=== PATIENT | female | born 1955 | race Caucasian/White ===

== ENCOUNTER 2017-05-03 11:35 | Inpatient (IN) | payer SELFPAY ==
[~2017-05-03] VITALS: Ht 160 cm; Wt 59.9 kg
[2017-05-03 12:22] LABS: BASOPHILS % (AUTO) 0.3 % (0-1); EOSINOPHILS # (AUTO) 0.1 X10'3 (0-0.9); EOSINOPHILS % (AUTO) 1.1 % (0-6); HEMATOCRIT 40.7 % (35.0-45.0); HEMOGLOBIN 14.1 g/dl (12.0-16.0); LYMPHOCYTES # (AUTO) 2.3 X10'3 (1.1-4.8); LYMPHOCYTES % (AUTO) 23.1 % (21-51); MEAN CORPUSCULAR HGB CONC 34.6 % (33.0-36.5); MEAN CORPUSCULAR VOLUME 101.2 FL (78-98); MEAN PLATELET VOLUME 8.4 FL (7.4-10.4); MONOCYTES # (AUTO) 0.9 X10'3 (0-0.9); MONOCYTES % (AUTO) 9.1 % (2-12); NEUTROPHILS # (AUTO) 6.7 X10'3 (1.8-7.7); NEUTROPHILS % (AUTO) 66.4 % (42-75); PLATELET COUNT 276 X10'3 (140-440); RED BLOOD COUNT 4.02 X10'6 (4.20-5.60); RED CELL DISTRIBUTION WIDTH 17.7 % (11.5-14.5); WHITE BLOOD COUNT 10.1 X10'3 (4.5-11.0)
[2017-05-03 12:45] LABS: ALANINE AMINOTRANSFERASE 73 U/L (12-78); ALBUMIN 3.7 G/DL (3.4-5.0); ALKALINE PHOSPHATASE 88 IU/L (46-116); ANION GAP 14 (8-16); ASPARTATE AMINO TRANSFERASE 189 U/L (10-37); BILIRUBIN,TOTAL 2.2 MG/DL (0.1-1.0); BLOOD UREA NITROGEN 9 MG/DL (7-18); BUN/CREATININE RATIO 12.7 (6.6-38.0); CALCIUM 9.1 MG/DL (8.5-10.1); CHLORIDE 99 MMOL/L (99-107); CREATININE 0.71 MG/DL (0.40-0.90); GLUCOSE 134 MG/DL (70-104); SODIUM 140 MMOL/L (135-145); TOTAL CARBON DIOXIDE 27.3 MMOL/L (24-32); TOTAL PROTEIN 7.3 G/DL (6.4-8.2); TROPONIN I 0.04 NG/ML (0.0-0.05); eGFR 83 ML/MIN
[2017-05-03 12:48] LABS: POTASSIUM 1.3 MMOL/L (3.5-5.1)
[2017-05-03 12:55] LABS: INR 1.1 INR; PARTIAL THROMBOPLASTIN TIME 23 SECONDS (22-32); PROTHROMBIN TIME 10.9 SECONDS (9.0-12.0)
[2017-05-03] MEDS ORDERED: magnesium 2GM in 50ml NS 50 ML IV ONE ×2 (12:55→15:35)
[2017-05-03] MEDS ORDERED: potassium Cl 20 mEq SR tablet PO ONE (12:55)
[2017-05-03] MEDS ORDERED: thiamine 100mg/ml 2ml inj. IV ONE (12:55)
[2017-05-03] MEDS ORDERED: potassium 10mEq/100ml NS w/LIDOcaine (10mg/bag) IV ONE (12:55)
[2017-05-03] MEDS ORDERED: normal saline 1000ml 1,000 ML IV ONE (13:30)
[2017-05-03 13:49] LABS: URINE AMPHETAMINE SCREEN NEGATIVE (Neg); URINE BARBITUATE SCREEN NEGATIVE (Neg); URINE BENZODIAZEPINES SCREEN NEGATIVE (Neg); URINE CANNABINOID SCREEN NEGATIVE (Neg); URINE COCAINE SCREEN NEGATIVE (Neg); URINE METHADONE SCREEN NEGATIVE (Neg); URINE OPIATE SCREEN NEGATIVE (Neg); URINE PHENCYCLIDINE SCREEN NEGATIVE (Neg)
[2017-05-03 13:51] LABS: ETHANOL 0.123 GM/DL (0.0-0.010); MAGNESIUM 1.5 MG/DL (1.5-2.4)
[2017-05-03] MEDS ORDERED: magnesium 4gm in 100ml NS 100 ML IV ONE (14:45)
[2017-05-03] MEDS ORDERED: sodium phosphate inj. 30 MMOL in dextrose 5%-water 250 ML IV PRN (14:45)
[2017-05-03] MEDS ORDERED: magnesium 2GM in 50ml NS 50 ML IV PRN (14:45)
[2017-05-03] MEDS ORDERED: potassium Cl 20 mEq SR tablet PO PRN ×2 (14:45)
[2017-05-03] MEDS: K, MAG and/or Phos replacement - Verify level? MC SCH (14:45)
[2017-05-03] MEDS ORDERED: magnesium Cl slow-release 64mg tablet PO PRN (14:45)
[2017-05-03] MEDS ORDERED: magnesium 4gm in 100ml NS 100 ML IV PRN (14:45)
[2017-05-03] MEDS ORDERED: sodium phosphate inj. 15 MMOL in dextrose 5%-water 150 ML IV PRN (14:45)
[2017-05-03] MEDS: enoxaparin 40mg/0.4ml syringe SUBCUT ONE ×2 (15:00→16:16)
[2017-05-03] MEDS ORDERED: SERT100T PO (15:29)
[2017-05-03] MEDS: potassium Cl 20 mEq SR tablet PO SCH ×2 (15:40→20:58)
[2017-05-03 15:49] LABS: PHOSPHORUS 2.7 MG/DL (2.3-4.5)
[2017-05-03 15:53] LABS: POTASSIUM 1.4 MMOL/L (3.5-5.1)
[2017-05-03] MEDS ORDERED: LISI-600 PO (16:14)
[2017-05-03] MEDS ORDERED: enoxaparin 50mg/0.5ml (from 3ml vial) syringe SUBCUT ONE (16:35)
[2017-05-03] MEDS: potassium Cl 40MEQ/NS 500ml 500 ML IV PRN (18:00)
[2017-05-03 19:15] VITALS: BP 157/86
[2017-05-03] MEDS: diatr meglu/diatrizoate 30ml oral sol.-(3 dose) bottle PO SCH (20:58)
[2017-05-03 23:00] VITALS: BP 170/98
[2017-05-04] MEDS ORDERED: potassium Cl 40MEQ/NS 500ml 500 ML IV ONE (00:22)
[2017-05-04] MEDS: lisinopril 20mg tablet PO SCH ×3 (01:10→07:18)
[2017-05-04] MEDS ORDERED: sertraline 50mg tablet PO ONE (01:10)
[2017-05-04 03:00] VITALS: BP 129/85
[2017-05-04 06:00] VITALS: BP 183/87
[2017-05-04] MEDS: diatr meglu/diatrizoate 30ml oral sol.-(3 dose) bottle PO SCH ×2 (07:17→09:53)
[2017-05-04] MEDS: sertraline 50mg tablet PO SCH (07:18)
[2017-05-04] MEDS: pantoprazole 40mg Tablet.DR PO SCH (07:18)
[2017-05-04 07:21] LABS: ALANINE AMINOTRANSFERASE 67 U/L (12-78); ALBUMIN 3.1 G/DL (3.4-5.0); ALKALINE PHOSPHATASE 80 IU/L (46-116); ANION GAP 11 (8-16); ASPARTATE AMINO TRANSFERASE 135 U/L (10-37); BILIRUBIN,TOTAL 1.7 MG/DL (0.1-1.0); BLOOD UREA NITROGEN 6 MG/DL (7-18); BUN/CREATININE RATIO 8.7 (6.6-38.0); CALCIUM 7.9 MG/DL (8.5-10.1); CHLORIDE 108 MMOL/L (99-107); CREATININE 0.69 MG/DL (0.40-0.90); GLUCOSE 168 MG/DL (70-104); PHOSPHORUS 2.2 MG/DL (2.3-4.5); SODIUM 145 MMOL/L (135-145); TOTAL CARBON DIOXIDE 26.3 MMOL/L (24-32); TOTAL PROTEIN 6.2 G/DL (6.4-8.2); eGFR 86 ML/MIN
[2017-05-04 07:23] LABS: POTASSIUM 2.1 MMOL/L (3.5-5.1)
[2017-05-04] MEDS: potassium Cl 20 mEq SR tablet PO SCH ×3 (07:27→21:21)
[2017-05-04] MEDS: K, MAG and/or Phos replacement - Verify level? MC SCH (07:31)
[2017-05-04] MEDS: Neutra Phos packet PO PRN ×2 (08:09→17:52)
[2017-05-04] MEDS ORDERED: iohexol 300mg/ml 100ml inj. ONE (09:54)
[2017-05-04 11:00] VITALS: BP 150/92
[2017-05-04] MEDS: potassium Cl 40MEQ/NS 500ml 500 ML IV PRN (11:35)
[2017-05-04] MEDS: enoxaparin 50mg/0.5ml (from 3ml vial) syringe SUBCUT SCH (12:34)
[2017-05-04 15:38] LABS: C DIFF ANTIGEN NEGATIVE (NEGATIVE); C DIFF SPECIMEN=DIARRHEA? ACCEPTABLE; C DIFFICILE TOXINS A&B NEGATIVE (Neg)
[2017-05-04 16:56] LABS: POTASSIUM 3.1 MMOL/L (3.5-5.1)
[2017-05-04] MEDS ORDERED: potassium Cl 40MEQ/NS 500ml 500 ML IV PRN ×2 (17:05)
[2017-05-04] MEDS ORDERED: acetaminophen 325mg tablet PO PRN (17:45)
[2017-05-04 19:00] VITALS: BP 144/78
[2017-05-04 23:00] VITALS: BP 147/86
[2017-05-05 03:00] VITALS: BP 136/93
[2017-05-05 05:57] LABS: ALANINE AMINOTRANSFERASE 51 U/L (12-78); ALBUMIN 2.6 G/DL (3.4-5.0); ALKALINE PHOSPHATASE 66 IU/L (46-116); ANION GAP 8 (8-16); ASPARTATE AMINO TRANSFERASE 81 U/L (10-37); BILIRUBIN,TOTAL 0.7 MG/DL (0.1-1.0); BLOOD UREA NITROGEN 4 MG/DL (7-18); BUN/CREATININE RATIO 7.4 (6.6-38.0); CALCIUM 7.8 MG/DL (8.5-10.1); CHLORIDE 113 MMOL/L (99-107); CREATININE 0.54 MG/DL (0.40-0.90); GLUCOSE 124 MG/DL (70-104); MAGNESIUM 1.6 MG/DL (1.5-2.4); PHOSPHORUS 2.4 MG/DL (2.3-4.5); POTASSIUM 3.5 MMOL/L (3.5-5.1); SODIUM 145 MMOL/L (135-145); TOTAL CARBON DIOXIDE 24.1 MMOL/L (24-32); TOTAL PROTEIN 5.2 G/DL (6.4-8.2); eGFR > 90 ML/MIN
[2017-05-05 06:00] VITALS: BP 152/91
[2017-05-05] MEDS: K, MAG and/or Phos replacement - Verify level? MC SCH (07:48)
[2017-05-05] MEDS: potassium Cl 20 mEq SR tablet PO SCH ×2 (07:58→14:56)
[2017-05-05] MEDS: lisinopril 20mg tablet PO SCH (07:59)
[2017-05-05] MEDS: enoxaparin 50mg/0.5ml (from 3ml vial) syringe SUBCUT SCH (08:00)
[2017-05-05] MEDS: sertraline 50mg tablet PO SCH (08:00)
[2017-05-05] MEDS: pantoprazole 40mg Tablet.DR PO SCH (08:18)
[2017-05-05 11:00] VITALS: BP 142/85
[2017-05-05 15:00] VITALS: BP 159/91
[2017-05-05 17:49] LABS: CLARITY,URINE Clear (Clear); COLOR,URINE Yellow (Yellow); GLUCOSE, URINE Negative (Neg); KETONES,URINE Negative (Neg); LEUKOCYTE ESTERASE ,URINE Trace (Neg); NITRITES, URINE Negative (Neg); OCCULT BLOOD,URINE Negative (Neg); PROTEIN,URINE Negative (Neg)
[2017-05-05 17:56] LABS: UA COLLECTION TYPE CLN CATCH MIDSTREAM
[2017-05-05 17:57] LABS: BACTERIA,URINE NONE SEEN /HPF (Neg); CREATININE,URINE RANDOM 46.2 MG/DL; MUCUS STRANDS NONE SEEN /LPF (Neg); RBC,URINE NONE SEEN /HPF (0-2); SQUAMOUS EPITHELIAL CELL,UR FEW /LPF (FEW); WBC,URINE 0-4 /HPF (0-4)
[2017-05-05 19:00] VITALS: BP 132/90
[2017-05-05 23:00] VITALS: BP 114/78
[2017-05-06 02:00] VITALS: BP 146/91
[2017-05-06 06:00] LABS: ALANINE AMINOTRANSFERASE 51 U/L (12-78); ALBUMIN 2.9 G/DL (3.4-5.0); ALBUMIN/GLOBULIN RATIO 0.9 (1.1-1.5); ALKALINE PHOSPHATASE 69 IU/L (46-116); ANION GAP 7 (8-16); ASPARTATE AMINO TRANSFERASE 62 U/L (10-37); BILIRUBIN,TOTAL 0.6 MG/DL (0.1-1.0); BLOOD UREA NITROGEN 4 MG/DL (7-18); BUN/CREATININE RATIO 7.3 (6.6-38.0); CALCIUM 8.2 MG/DL (8.5-10.1); CHLORIDE 108 MMOL/L (99-107); CREATININE 0.55 MG/DL (0.40-0.90); GLUCOSE 120 MG/DL (70-104); MAGNESIUM 1.5 MG/DL (1.5-2.4); PHOSPHORUS 2.7 MG/DL (2.3-4.5); SODIUM 143 MMOL/L (135-145); TOTAL CARBON DIOXIDE 28.5 MMOL/L (24-32); eGFR > 90 ML/MIN
[2017-05-06] MEDS: pantoprazole 40mg Tablet.DR PO SCH (08:15)
[2017-05-06] MEDS: sertraline 50mg tablet PO SCH (08:15)
[2017-05-06] MEDS: lisinopril 20mg tablet PO SCH (08:15)
[2017-05-06] MEDS: enoxaparin 50mg/0.5ml (from 3ml vial) syringe SUBCUT SCH (08:17)
== END 2017-05-06 12:09 | disposition home or self-care (01) | DRG 642 ==
LOC: ER 11:36 → ED HOLD 14:41 → PCU 3S 20:50
PROVIDERS: ADMIT Internal Medicine Critical Care Medicine; ATTEND Internal Medicine Critical Care Medicine
PROC: BW211ZZ Computerized Tomography (CT Scan) of Abdomen and Pelvis using Low Osmolar Contrast (ICD-10-PCS; principal; 2017-05-04)
DX: E83.39 Other disorders of phosphorus metabolism (principal); G93.41 Metabolic encephalopathy; E87.6 Hypokalemia; E83.42 Hypomagnesemia; Y90.0 Blood alcohol level of less than 20 mg/100 ml; F10.10 Alcohol abuse, uncomplicated; F32.9 Major depressive disorder, single episode, unspecified
CPT/HCPCS: 36415; 70450; 71045; 74177; 80053; 80305; 80320; 81001; 82140; 82570; 82948; 83735; 84100; 84132; 84133; 84156; 84300; 84439; 84443; 84484; 85025; 85610; 85730; 87070; 87324; 87449; 93005; 96365; 96375; 99285; J1650; J3411; J3475; J3480; J7030; Q9963; Q9967